=== PATIENT | female | born 1960 | race Caucasian/White ===

== ENCOUNTER → 2019-02-07 | Outpatient (CLI) | payer MEDICARE ==
[~2019-02-07] MED LIST: ABILIFY5 MG PO; CELEXA40 MG PO; MOBIC15 MG PO; PRILOTC PO; SINGULAIR 110 MG/TAB PO; TOPROL XL 25MG25 MG PO; ZANTAC 150MG T150 MG PO
== END ==
LOC: COL.RAD 07:19
DX: K21.9 Gastro-esophageal reflux disease without esophagitis (principal); Z91.89 Other specified personal risk factors, not elsewhere classified
CPT/HCPCS: A9541